=== PATIENT | female | born 1995 | race Caucasian/White ===

== ENCOUNTER 2022-08-09 17:00 | Outpatient (CLI) | payer OTHER, SELFPAY | END 2022-08-09 17:01 | disposition home or self-care (01) | LOC: LKVREF 08-11 11:35 | PROVIDERS: Visit Provider Nurse Practitioner Family | DX: M54.9 Dorsalgia, unspecified (principal); N39.0 Urinary tract infection, site not specified | CPT/HCPCS: 87086 ==

== ENCOUNTER 2022-09-07 11:33 | Outpatient (CLI) | payer OTHER, SELFPAY ==
[2022-09-07 21:46] LABS: Cholesterol* 210 mg/dL (90-199); Glucose* 79 mg/dL (60-115); Triglycerides* 93 mg/dL (40-149)
[2022-09-07 21:47] LABS: HDL Cholesterol* 39 mg/dL (>=50); LDL Cholesterol Calculated 152 mg/dL (<100)
[2022-09-07 22:17] LABS: Vitamin D 25 Hydroxy* < 13 ng/mL (30-80)
[2022-09-09 19:17] LABS: DHEAS 82 ug/dL (99-340)
[2022-09-12 18:01] LABS: Estradiol by TMS 51.5 pg/mL
[2022-09-14 15:49] LABS: Sex Hormone Binding Globulin 19 nmol/L (25-122); Testosterone Bioavailable 53.6 ng/dL (2.2-20.6); Testosterone, Free LC-MS/MS 20.5 pg/mL (0.8-7.4); Testosterone, LC-MS/MS 90 ng/dL (9-55)
[2022-09-21 20:09] LABS: Progesterone, HPLC-MS/MS 0.15 ng/mL
== END 2022-09-07 11:34 | disposition home or self-care (01) ==
PROVIDERS: Visit Provider Physician Assistant Medical
DX: Z01.419 Encounter for gynecological examination (general) (routine) without abnormal findings (principal); N91.2 Amenorrhea, unspecified; E55.9 Vitamin D deficiency, unspecified; F41.9 Anxiety disorder, unspecified; K21.9 Gastro-esophageal reflux disease without esophagitis; N39.0 Urinary tract infection, site not specified
CPT/HCPCS: 80061; 82306; 82627; 82670; 82947; 84144; 84270; 84402; 84403; 84443; 87086

== ENCOUNTER 2022-09-30 10:55 | Outpatient (CLI) | payer OTHER, SELFPAY ==
--- NOTE | 2022-09-30 11:00 | CRLHL7_ITS ---
For Patients: As a result of the Century Cures Act, medical imaging exams and procedure reports are released immediately into your electronic medical record. You may view this report before your referring provider. If you have questions, please contact your health care provider. INDICATION: ? PCOS; Irregular menses COMPARISON: none TECHNIQUE: 2D jackson scale and color Doppler images were acquired of the pelvis using a transabdominal and transvaginal approach. FINDINGS: Sonographic images demonstrate a normal size and smooth outer contour of the uterus. Uterus measures 7.7 cm in length by 3.8 cm in AP diameter by 5.3 cm in transverse dimension. The myometrium has a normal uniform echotexture. The endometrial lining measures 8 mm in composite thickness. The right ovary measures 3.7 x 2.6 x 2.7 cm in size and the left ovary measures 3.1 x 2.3 x 2.5 cm. The ovaries demonstrate normal arterial and venous blood flow on color Doppler analysis. There are no suspicious fluid collections within the cul-de-sac. IMPRESSION: Normal pelvic ultrasound. Normal ovaries. Dictated by Petey Jacobo MD @ 09/30/2022 12:05:37 PM (Electronically Signed)
== END 2022-09-30 10:56 | disposition home or self-care (01) ==
LOC: US 10:59
PROVIDERS: PCP Physician Assistant Medical; Visit Provider Physician Assistant Medical
DX: N92.6 Irregular menstruation, unspecified (principal)
CPT/HCPCS: 76830; 76856

== ENCOUNTER 2022-10-07 09:25 | Outpatient (CLI) | payer OTHER, SELFPAY ==
[2022-10-07 12:09] LABS: Chloride* 105 mmol/L (96-114); Potassium* 4.2 mmol/L (3.6-5.1); Sodium* 137 mmol/L (135-149)
[2022-10-07 12:12] LABS: Blood Urea Nitrogen* 11 mg/dL (5-24); Calcium* 8.9 mg/dL (8.4-10.6); Carbon Dioxide* 26 mmol/L (20-32); Creatinine* 0.7 mg/dL (0.5-1.5); Estimated Glomerular Filt Rate 123 ml/min; Glucose* 93 mg/dL (60-115)
== END 2022-10-07 09:26 | disposition home or self-care (01) ==
LOC: NFLDREF 09:26
PROVIDERS: PCP Physician Assistant Medical; Visit Provider Obstetrics & Gynecology
DX: E28.2 Polycystic ovarian syndrome (principal)
CPT/HCPCS: 80048

== ENCOUNTER 2023-05-08 17:50 | Outpatient (CLI) | payer OTHER, SELFPAY | END 2023-05-08 17:51 | disposition home or self-care (01) | PROVIDERS: PCP Physician Assistant Medical; Visit Provider Physician Assistant Medical | DX: R11.10 Vomiting, unspecified (principal); R10.9 Unspecified abdominal pain; E55.9 Vitamin D deficiency, unspecified; R79.89 Other specified abnormal findings of blood chemistry | CPT/HCPCS: 80053; 82306; 83690 ==

== ENCOUNTER 2023-05-17 08:59 | Outpatient (RCR) | payer MEDICAID, SELFPAY ==
--- NOTE | 2023-05-18 10:59 | PT.OPE ---
PT [place] Outpatient Eval PT [facility] Outpatient Eval Start: 05/17/23 10:19 Freq: Status: Active Protocol: Document 05/17/23 10:21 BMS (Rec: 05/17/23 10:21 BMS [id number]) E-signed By Sophia Vazquez PT Physical Therapy Outpatient Evaluation Insurance Information Recert Due Date 08/15/23 Insurance Name [employer] Provider Fax Number internal Medical Diagnosis M25.552 pain in left hip M54.50 low back pain, unspecified Treating Diagnosis LEFT hip pain M25.553 Low back pain M54.50 LEFT Leg pain M79.605 Referring MD Irina Asher PA-C Subjective Subjective sprained ankle in 2018 [place] traveling [place] so did not go to doctor, then after a while of walking garcía on uneven ground my whole leg knee but garcía hip and low back started to hurt. came home 6 weeks later and went to doctor. work at a desk doing mental health program coordinating had 1 PT session a few years ago, think it maybe helped, havent had time to do any exercise or go to the gym lately as planning and preparing brothers wedding, and I get such anxiety going into a gym with a lot of people there. went to urgent care for back pain once, they told me was SI or sciatica. have tried heat and ice that helps but need to make time to do it, not doing any ex right now, and tylenol helps a little but I dont like to take it. Had muscle relaxer once that really helped but I dont like taking medication so didnt refill the script. Pain Comments pain constant 1-2, when bad at end of day 5-05/04 mostly in hip and groin, into across the back. dull throb through front and side. Limitations: walking longer distances or uneven ground, flexibility, back pain, sitting then standing waking at night from pain, cant sleep due to no comfortable positions, standing few hours, sit/stand at work, getting out of car, driving distance 30 min commute usually ok, sometimes home is worse. sometimes some numbness in LE if sit 15 min. 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 knees B hyper ext in long sit and standing~10 degrees. hip ER limited not tolerated measurement due to pain, significant guarding with passive testing scour test inconclusive this date IR inc pressure and limited DF L 5 degrees, R 10 Strength MMT grossly 4/5 B LE will reassess at future date. pain with resisted hip flex, ext, and abduct. fatigue after 6 reps sidelying hip abduct Swelling palpable edema throughout ankle foot Palpation severe tender glute and piriformis with trigger points . tight through QL and lumbar paraspinals, unable to assess SI due to soft tissue. limited inf glide of hip. Balance & Gait mild limp, slow pace. able to amb on toes but with pain in L ankle and hip increased wobble on L SLS indicating she feels less stable and less safe Posture increased abdominal body habitus Other/Pertinent Objective discussed improved support of footwear to assist in lower chain mechanics. recommend she consult with expert at running room, [employer] etc to find shoe to assist with stability Assessment Assessment/Impression Patient is very pleasant 27 yo female referred for L hip and low back pain of ~ 5 years intermittent flares. Has gotten worse past few months preparing and celebrating brothers wedding. States she has a gym membership with access to a pool, has anxiety about going there with lots of people. Had 1 session of PT, stretches that seemed to help but has not continued on with these. Ice, heat, and tylenol offer some relief for ~ 30 min , has taken mm relaxer in past for back that really seemed to help but patient does not like to take much medication. She works at desk, could be better at getting up and moving during the day. Functional limitations: pain constant 1-2, when bad at end of day 5-8/10 mostly in hip and groin, into across the back. dull throb through front and side. Limitations: walking longer distances or uneven ground, flexibility, back pain, sitting then standing waking at night from pain, cant sleep due to no comfortable positions, standing few hours, sit/stand at work, getting out of car, driving distance 30 min commute usually ok, sometimes home is worse. sometimes some numbness in LE if sit 15 min. Presents with tightness through L hip and low back, weakness of core and L LE, impaired single leg balance and decreased flexibility. She will benefit from skilled physical therapy to improve mobility, mechanics and symptoms and to return to prior level of activity for health and fitness Primary Functional Limitations 1) wakes at night due to pain and unable to find comfortable position 2) standing few hours 3) sit/ stand for work 4) get out of car (L hip and LE hurts 5) driving disatance (30 min commute to/from work) Plan of Care Rehabilitation Potential Good Rehabilitation Potential Comments motivated but needs significant encouragement as well as pain neuro ed. Physical Therapy Goals 1) Patient demo indpendence with home exercise and self management program. Advance as tolerated through POC. 2) Pt wakes several times at night due to pain and unable to find comfortable position, decrease this to 2 or fewerx/ week. 3) Pt report tolerance of standing few hours without increased pain for home care and necessity shopping. 4) Pt report ability sit/ stand for work upt ot 8 hour day with breaks as appropriate . 5) Pt demo ability to get in/ out of car without use of hand and without increased pain. 6) Pt report driving disatance (30 min commute to/from work) without increased low back or hip pain when getting out/ Coordination/Communication With Referral Source Treatment Plan/Direct Interventions Electrical Stimulation,Gait Training,Ice/Cold/ Vasopneumatic,Manual Therapy, Neuromuscular Re-ed,Self-Care/ Home Management,Therapeutic Activities,Therapeutic Exercises,Traction (Mechanical ),Ultrasound Frequency/Duration 1x/ 1-2 weeks x up to 12 weeks Patient Will Be Discharged From Therapy Completion of LTG(s),Skills Plateau,Independent w/HEP, Independently Progressing Evaluation Billing Untimed Code Treatment Minutes 25 Complexity Low Certification Information Physician Comment/Change : Physician NPI Number #
== END 2023-09-14 23:59 | disposition home or self-care (01) ==
PROVIDERS: PCP Physician Assistant Medical; Visit Provider Physician Assistant Medical
DX: M25.552 Pain in left hip (principal); M54.50 Low back pain, unspecified; M79.605 Pain in left leg; Z51.89 Encounter for other specified aftercare
CPT/HCPCS: 97110; 97140; 97161

== ENCOUNTER 2023-06-14 14:22 | Outpatient (CLI) | payer MEDICAID, SELFPAY | END 2023-06-14 14:23 | disposition home or self-care (01) | PROVIDERS: PCP Physician Assistant Medical; Visit Provider Emergency Medicine | DX: Z01.818 Encounter for other preprocedural examination (principal); E55.9 Vitamin D deficiency, unspecified | CPT/HCPCS: 80048; 82306 ==

== ENCOUNTER 2024-06-27 08:40 | Outpatient (CLI) | payer MEDICAID, SELFPAY ==
[2024-06-27 09:26] LABS: Hemoglobin* 14.2 gm/dL (12.0-16.0)
[2024-06-27 09:30] LABS: Hemoglobin A1C* 5.1 % (0-5.6)
[2024-06-27 14:21] LABS: Cholesterol* 174 mg/dL (90-199); HDL Cholesterol* 32 mg/dL (>=50); LDL Cholesterol Calculated 120 mg/dL (<100); Triglycerides* 112 mg/dL (40-149)
[2024-06-27 14:29] LABS: Vitamin D 25 Hydroxy* 69 ng/mL (30-80)
[2024-06-29 14:40] LABS: Luteinizing Hormone, Serum 13.3 IU/L
[2024-07-01 07:50] LABS: Sex Hormone Binding Globulin 17 nmol/L (25-122); Testosterone Bioavailable 39.2 ng/dL (2.2-20.6); Testosterone, Free LC-MS/MS 15.4 pg/mL (0.8-7.4); Testosterone, LC-MS/MS 64 ng/dL (9-55)
== END 2024-06-27 08:41 | disposition home or self-care (01) ==
PROVIDERS: PCP Physician Assistant Medical; Visit Provider Physician Assistant Medical
DX: Z00.00 Encounter for general adult medical examination without abnormal findings (principal); N92.6 Irregular menstruation, unspecified; E55.9 Vitamin D deficiency, unspecified; R79.89 Other specified abnormal findings of blood chemistry; F41.9 Anxiety disorder, unspecified; Z13.6 Encounter for screening for cardiovascular disorders; Z13.1 Encounter for screening for diabetes mellitus
CPT/HCPCS: 80061; 81025; 82306; 83001; 83002; 83036; 84146; 84270; 84402; 84403; 84443; 85018

== ENCOUNTER 2024-08-02 11:10 | Outpatient (CLI) | payer MEDICAID, SELFPAY ==
[2024-08-05 16:30] LABS: HPV Source Cervical; HPV, High Risk by TMA Not Detected
== END 2024-08-02 11:11 | disposition home or self-care (01) ==
PROVIDERS: PCP Physician Assistant Medical; Visit Provider Obstetrics & Gynecology
DX: Z12.4 Encounter for screening for malignant neoplasm of cervix (principal); Z11.51 Encounter for screening for human papillomavirus (HPV)
CPT/HCPCS: 87624; 87625; 88141; 88142

== ENCOUNTER 2024-09-05 13:00 | Outpatient (CLI) | payer MEDICAID, SELFPAY ==
--- NOTE | 2024-09-05 13:00 | CRLHL7_ITS ---
For Patients: As a result of the Century Cures Act, medical imaging exams and procedure reports are released immediately into your electronic medical record. You may view this report before your referring provider. If you have questions, please contact your health care provider. INDICATION: Abnormal uterine bleeding. TECHNIQUE: Ultrasound pelvis transabdominal and transvaginal. Grayscale and color Doppler imaging of the pelvis was performed. COMPARISON: None. FINDINGS: Uterus: 9.4 x 4 x 4.9 cm. Normal echotexture of the myometrium. No masses. Endometrium: Endometrial thickness measures 15 mm. Heterogeneous appearance of the endometrium with mildly increased vascularity along the anterior endometrium. IUD is satisfactory in position. Right ovary measures 5 x 2.3 x 3.5 cm and left ovary measures 4.3 x 2.3 x 3.2 cm. Increased number of follicles in the bilateral ovaries. No ovarian or adnexal masses. Normal blood flow is demonstrated in both ovaries. Cul-de-sac: No significant free fluid. IMPRESSION: 1. IUD in place. 2. Thickened heterogeneous endometrium with mildly increased vascularity, nonspecific. 3. Increased number of follicles in the bilateral ovaries, clinically correlate for PCOS. Dictated by Antonio Vargas MD @ 09/05/2024 3:18:56 PM (Electronically Signed)
== END 2024-09-05 13:01 | disposition home or self-care (01) ==
LOC: US 13:01
PROVIDERS: PCP Physician Assistant Medical; Visit Provider Obstetrics & Gynecology
DX: N92.1 Excessive and frequent menstruation with irregular cycle (principal); R93.89 Abnormal findings on diagnostic imaging of other specified body structures; N83.02 Follicular cyst of left ovary; N83.01 Follicular cyst of right ovary
CPT/HCPCS: 76830; 76856

== ENCOUNTER 2024-12-31 07:09 | Outpatient (CLI) | payer MEDICAID, SELFPAY ==
--- NOTE | 2024-12-31 07:15 | CRLHL7_ITS ---
For Patients: As a result of the Century Cures Act, medical imaging exams and procedure reports are released immediately into your electronic medical record. You may view this report before your referring provider. If you have questions, please contact your health care provider. INDICATION: Headaches. TECHNIQUE: Brain MRI with and without contrast. 20 cc Dotarem gadolinium based contrast administered. COMPARISON: None. FINDINGS: No evidence of acute ischemia. No evidence of acute or chronic intracranial blood products. No mass or pathologic intracranial enhancement. No intracranial signal abnormality. No hydrocephalus or extra-axial collections. The pituitary gland, parasellar structures and optic chiasm are normal. Posterior fossa is normal. All the major intracranial vascular structures demonstrate normal flow-related signal. The orbital contents are normal. No calvarial or skull base marrow signal abnormality. No obstructive sinus disease. No extracranial soft tissue findings. IMPRESSION: 1. No significant intracranial abnormality. Dictated by Cam Solis MD @ 12/31/2024 2:40:39 PM (Electronically Signed)
== END 2024-12-31 07:10 | disposition home or self-care (01) ==
LOC: MRI 07:11
PROVIDERS: PCP Physician Assistant Medical; Visit Provider Physician Assistant Medical
DX: R51.9 Headache, unspecified (principal); H53.9 Unspecified visual disturbance; G89.29 Other chronic pain
CPT/HCPCS: 70553; A9575

== ENCOUNTER 2025-03-05 07:45 | Outpatient (RCR) | payer MEDICAID, SELFPAY | END 2025-07-03 23:59 | disposition home or self-care (01) | PROVIDERS: PCP Physician Assistant Medical; Visit Provider Physician Assistant Medical | DX: R51.9 Headache, unspecified (principal); G89.29 Other chronic pain; R42 Dizziness and giddiness; Z51.89 Encounter for other specified aftercare | CPT/HCPCS: 97110; 97140; 97162 ==